=== PATIENT | female | born 1990 | race Caucasian/White ===

== ENCOUNTER 2019-02-18 18:10 | Emergency (ER) | payer OTHER ==
[~2019-02-18] VITALS: Ht 165.1 cm; Wt 86.6 kg
[~2019-02-18 18:10] MED LIST: PANTOPRAZOLE SO40 MG PO; TUMS200 MG PO; ZOFRAN4 MG SL
== END 2019-02-18 21:08 | disposition home or self-care (01) ==
LOC: ED 18:10
DX: R10.13 Epigastric pain (principal); R10.816 Epigastric abdominal tenderness
CPT/HCPCS: 80053; 81001; 83690; 84703; 85025; 99284

== ENCOUNTER 2019-03-17 17:21 | Emergency (ER) | payer OTHER ==
[~2019-03-17] VITALS: Ht 165.1 cm; Wt 86.6 kg
--- OUTSIDE RECORDS SUMMARY | 2019-03-17 17:22 | XMS ---
PreManage Notification: NOEL GARCIA Security Planning Consultant Events No recent Security Events currently on file CRITERIA MET - [facility] - 2 Visits in 30 Days CARE PROVIDERS There are no care providers on record at this time. Odalis has no Care Guidelines for this patient. Nadia VISIT COUNT (12 MO.) 3 [facility] TOTAL 3 NOTE: Visits indicate total known visits. ED/C VISIT TRACKING (12 MO.) 03/17/2019 17:21 [facility] [place] TYPE: Emergency COMPLAINT: - SORE THROAT 02/18/2019 18:11 [facility] [place] TYPE: Emergency COMPLAINT: - ABDOMINAL PAIN DIAGNOSES: - Epigastric abdominal tenderness - Epigastric pain 12/16/2018 16:08 [facility] [place] TYPE: Emergency COMPLAINT: - ABD PAIN DIAGNOSES: - Personal history of urinary calculi - Nausea with vomiting, unspecified - Epigastric pain INPATIENT VISIT TRACKING (12 MO.) No inpatient visits to display in this time frame [id number]
[2019-03-17] MEDS ORDERED: TRAZODONE HCL50 MG PO (18:03)
== END 2019-03-17 19:02 | disposition home or self-care (01) ==
LOC: ED 17:21
DX: J03.90 Acute tonsillitis, unspecified (principal); Z79.899 Other long term (current) drug therapy
CPT/HCPCS: 87880; 99283

== ENCOUNTER 2019-04-06 12:42 | Emergency (ER) | payer OTHER ==
[~2019-04-06] VITALS: Ht 165.1 cm; Wt 88.5 kg
[~2019-04-06 12:42] MED LIST changes: +TRAZODONE HCL50 MG PO
--- OUTSIDE RECORDS SUMMARY | 2019-04-06 12:44 | XMS ---
PreManage Notification: NOEL GARCIA Security Vocational Nurse Events No recent Security Events currently on file CRITERIA MET - [facility] - Has Care Guidelines - [facility] - 2 Visits in 30 Days CARE PROVIDERS LUCHO TSE Nurse Practitioner: Women's Health 03/18/2019-Current PHONE: [phone] HEMALATHA SIERRA Physician Microarray Analyst 03/18/2019-Current PHONE: [phone] Odalis has no Care Guidelines for this patient. Care History Medical/Surgical 03/18/2019 [facility] CASE MANAGEMENT REFERRAL MADE- PATIENT HAS E[facility]O AND NO PCP. E.D. VISIT COUNT (12 MO.) 4 [facility] Allison TOTAL 4 NOTE: Visits indicate total known visits. ED/UCC VISIT TRACKING (12 MO.) 04/06/2019 12:42 [facility] [place] TYPE: Emergency COMPLAINT: - POSSIBLE BUG BITE 03/17/2019 17:21 [facility] [place] TYPE: Emergency COMPLAINT: - SORE THROAT DIAGNOSES: - Acute tonsillitis, unspecified - Acute pharyngitis, unspecified - Other moth exterminator (current) drug therapy 02/18/2019 18:11 [facility] [place] TYPE: Emergency COMPLAINT: - ABDOMINAL PAIN DIAGNOSES: - Epigastric abdominal tenderness - Epigastric pain 12/16/2018 16:08 [facility] [place] TYPE: Emergency COMPLAINT: - ABD PAIN DIAGNOSES: - Personal history of urinary calculi - Nausea with vomiting, unspecified - Epigastric pain INPATIENT VISIT TRACKING (12 MO.) No inpatient visits to display in this time frame [id number]
[2019-04-06] MEDS ORDERED: PANTOPRAZOLE SO40 MG PO (12:54)
== END 2019-04-06 13:02 | disposition home or self-care (01) ==
LOC: ED 12:42
DX: L98.9 Disorder of the skin and subcutaneous tissue, unspecified (principal)

== ENCOUNTER 2020-01-15 16:10 | Emergency (ER) | payer OTHER ==
[~2020-01-15] VITALS: Ht 165.1 cm; Wt 86.2 kg
--- OUTSIDE RECORDS SUMMARY | 2020-01-15 16:12 | XMS ---
PreManage Notification: NOEL GARCIA Security Tunneling Machine Operator Events No recent Security Events currently on file CRITERIA MET - [facility] - Has Care Guidelines CARE PROVIDERS LUCHO TSE Nurse Practitioner: Women's Health 03/18/2019-Current PHONE: [phone] HEMALATHA SIERRA Physician Circuit Walker 03/18/2019-Current PHONE: [phone] Odalis has no Care Guidelines for this patient. Care History Medical/Surgical 03/18/2019 [facility] CASE MANAGEMENT REFERRAL MADE- PATIENT HAS EOCCO AND NO PCP. E.D. VISIT COUNT (12 MO.) 4 [facility] TOTAL 4 NOTE: Visits indicate total known visits. ED/UCC VISIT TRACKING (12 MO.) 01/15/2020 16:11 [facility] [place] TYPE: Emergency COMPLAINT: - RIGHT FOOT INJURY 04/06/2019 12:42 [facility] [place] TYPE: Emergency COMPLAINT: - POSSIBLE BUG BITE/MSE'D TO CLINIC DIAGNOSES: - Disorder of the skin and subcutaneous tissue, unspecified 03/17/2019 17:21 [facility] [place] TYPE: Emergency COMPLAINT: - SORE THROAT DIAGNOSES: - Acute tonsillitis, unspecified - Acute pharyngitis, unspecified - Other correction (current) drug therapy 02/18/2019 18:11 [facility] [place] TYPE: Emergency COMPLAINT: - ABDOMINAL PAIN DIAGNOSES: - Epigastric abdominal tenderness - Epigastric pain INPATIENT VISIT TRACKING (12 MO.) No inpatient visits to display in this time frame [id number]
[2020-01-15] MEDS ORDERED: TRAZODONE HCL100 MG PO (16:44)
[2020-01-15] MEDS ORDERED: NORCO 5-325 TA1 EACH PO (17:34)
== END 2020-01-15 17:59 | disposition home or self-care (01) ==
LOC: ED 16:10
DX: S96.911A Strain of unspecified muscle and tendon at ankle and foot level, right foot, initial encounter (principal); X58.XXXA Exposure to other specified factors, initial encounter
CPT/HCPCS: 73630; 99283-25

== ENCOUNTER 2020-09-21 14:37 | Emergency (ER) | payer OTHER ==
[~2020-09-21] VITALS: Ht 160 cm; Wt 95.2 kg
[~2020-09-21 14:37] MED LIST changes: +NORCO 5-325 TA1 EACH PO; +TRAZODONE HCL100 MG PO
== END 2020-09-21 16:18 | disposition home or self-care (01) ==
LOC: ED 14:37
DX: J02.9 Acute pharyngitis, unspecified (principal); Z20.822 Contact with and (suspected) exposure to COVID-19; Z79.899 Other long term (current) drug therapy
CPT/HCPCS: 87081; 87880; 99283; C9803; U0003

== ENCOUNTER 2021-01-26 11:53 | Emergency (ER) | payer OTHER ==
[~2021-01-26] VITALS: Ht 160 cm; Wt 95.2 kg
--- OUTSIDE RECORDS SUMMARY | 2021-01-26 11:56 | XMS ---
PreManage Notification: NOEL GARCIA Security Legal Collector Events No recent Security Events currently on file CRITERIA MET - [facility] - 2 Visits in 30 Days CARE PROVIDERS LUCHO TSE Nurse Practitioner: Women's Health 03/18/2019-Current PHONE: [phone] HEMALATHA SIERRA Physician Claim Technician 03/18/2019-Current PHONE: [phone] Odalis has no Care Guidelines for this patient. Care History Medical/Surgical 03/18/2019 [facility] CASE MANAGEMENT REFERRAL MADE- PATIENT HAS EOCCO AND NO PCP. E.D. VISIT COUNT (12 MO.) 4 [facility] NOTE: Visits indicate total known visits. ED/UCC VISIT TRACKING (12 MO.) 01/26/2021 11:[address] [facility] [place] Tanya Melo [place] TYPE: Emergency COMPLAINT: - ABDOMINAL PAIN 01/23/2021 12:11 [facility] [place] TYPE: Emergency DIAGNOSES: - COVID TEST - COVID-19 01/15/2021 19:36 [facility] [place] TYPE: Emergency DIAGNOSES: - COVID SCREENING - COVID-19 01/12/2021 13:[address] [facility] [place] TYPE: Emergency COMPLAINT: - SPIDER BITE [facility]2020 [facility] COMPLAINT: - SORE THROAT DIAGNOSES: - Other assistant terminal manager (current) drug therapy - Acute pharyngitis, unspecified 04/08/2020 22:07 [facility] [place] TYPE: Emergency DIAGNOSES: - ABD PAIN - Upper abdominal pain, unspecified 03/23/2020 19:17 [facility] [place] TYPE: Emergency DIAGNOSES: - POSS STREP SORE THROAT - Acute upper respiratory infection, unspecified INPATIENT VISIT TRACKING (12 MO.) No inpatient visits to display in this time frame [id number]
== END 2021-01-26 14:00 | disposition home or self-care (01) ==
LOC: ED 11:53
DX: R11.2 Nausea with vomiting, unspecified (principal); R10.84 Generalized abdominal pain; Z87.891 Personal history of nicotine dependence; Z79.899 Other long term (current) drug therapy; F12.90 Cannabis use, unspecified, uncomplicated; Z86.16 Personal history of COVID-19
CPT/HCPCS: 80053; 81001; 84703; 85025; 96374; 96375; 99284-25; J1200; J1790; J7030

== ENCOUNTER 2021-08-13 16:03 | Emergency (ER) | payer OTHER ==
[~2021-08-13] VITALS: Ht 160 cm; Wt 86.2 kg
--- OUTSIDE RECORDS SUMMARY | 2021-08-13 16:10 | XMS ---
PreManage Notification: NOEL GARCIA Security Water Resource Project Manager Events 1 event(s) in the past 18 months Most recent security events: Elopement at [facility] 01/12/2021 13:01 - Other Details: PATIENT LWBS CRITERIA MET - ED - Positive COVID-19 Lab Result - [facility] CARE PROVIDERS LUCHO TSE Nurse Practitioner: Women's Health 03/18/2019-Current PHONE: [phone] HEMALATHA SIERRA Physician Outside Cutter Hand 03/18/2019-Current PHONE: [phone] Odalis has no Care Guidelines for this patient. Care History Medical/Surgical 03/18/2019 [facility] CASE MANAGEMENT REFERRAL MADE- PATIENT HAS EOCCO AND NO PCP. E.D. VISIT COUNT (12 MO.) 2 [facility] 4 [facility]ribe[facility] TOTAL 6 NOTE: Visits indicate total known visits. ED/UCC VISIT TRACKING (12 MO.) 08/13/2021 16:04 [facility] [place] TYPE: Emergency COMPLAINT: - FEVER,VOMITING,SORE THROAT 01/26/2021 11:54 [facility] [place] TYPE: Emergency COMPLAINT: - ABDOMINAL PAIN, [place] DIAGNOSES: - Other usp (current) drug therapy - Nausea with vomiting, unspecified - Generalized abdominal pain - Personal history of nicotine dependence - Cannabis use, unspecified, uncomplicated 01/23/2021 12:11 [facility] [place] TYPE: Emergency DIAGNOSES: - COVID TEST - COVID-19 01/15/2021 19:36 [facility] [place] TYPE: Emergency DIAGNOSES: - COVID SCREENING - COVID-19 01/12/2021 13:01 [facility] [place] TYPE: Emergency COMPLAINT: - SPIDER BITE 09/21/2020 14:37 [facility] [place] TYPE: Emergency COMPLAINT: - SORE THROAT DIAGNOSES: - Other usp (current) drug therapy - Acute pharyngitis, unspecified INPATIENT VISIT TRACKING (12 MO.) No inpatient visits to display in this time frame [id number]
[2021-08-13] MEDS ORDERED: AMOXICILLIN500 MG PO (19:25)
[2021-08-13] MEDS ORDERED: medrol dose pack (19:25)
== END 2021-08-13 19:52 | disposition home or self-care (01) ==
LOC: ED 16:03
DX: J02.0 Streptococcal pharyngitis (principal); Z87.891 Personal history of nicotine dependence; Z79.899 Other long term (current) drug therapy; Z20.822 Contact with and (suspected) exposure to COVID-19
CPT/HCPCS: 87880; 99284; A9270; C9803; U0003

== ENCOUNTER 2021-10-20 18:06 | Emergency (ER) | payer OTHER ==
[~2021-10-20] VITALS: Ht 160 cm; Wt 86.2 kg
[~2021-10-20 18:06] MED LIST changes: +AMOXICILLIN500 MG PO; +medrol dose pack
== END 2021-10-20 20:21 | disposition home or self-care (01) ==
LOC: ED 18:06
DX: J02.9 Acute pharyngitis, unspecified (principal); Z87.891 Personal history of nicotine dependence; Z79.899 Other long term (current) drug therapy
CPT/HCPCS: 87880; 96372; 99283; J0561

== ENCOUNTER 2022-08-06 14:42 | Emergency (ER) | payer OTHER ==
[~2022-08-06] VITALS: Ht 160 cm; Wt 86.6 kg
[2022-08-06] MEDS ORDERED: AMOX TR-K CLV1 EAC1 PO (14:53)
[2022-08-06] MEDS ORDERED: PREDNISONE20 MG PO (14:53)
== END 2022-08-06 15:02 | disposition home or self-care (01) ==
LOC: ED 14:42
DX: J03.80 Acute tonsillitis due to other specified organisms (principal); Z87.891 Personal history of nicotine dependence; Z79.899 Other long term (current) drug therapy
CPT/HCPCS: 99282

== ENCOUNTER 2022-10-01 17:34 | Emergency (ER) | payer OTHER ==
[~2022-10-01] VITALS: Ht 160 cm; Wt 83.9 kg
[~2022-10-01 17:34] MED LIST changes: +AMOX TR-K CLV1 EAC1 PO; +PREDNISONE20 MG PO
[2022-10-01] MEDS ORDERED: AMOXICILLIN500 MG PO (18:14)
[2022-10-01 18:44] VITALS: BP 162/68
== END 2022-10-01 18:44 | disposition home or self-care (01) ==
LOC: ED 17:34
DX: J02.9 Acute pharyngitis, unspecified (principal); Z87.891 Personal history of nicotine dependence; Z79.899 Other long term (current) drug therapy
CPT/HCPCS: 87880

== ENCOUNTER 2023-01-24 17:45 | Emergency (ER) | payer OTHER ==
[~2023-01-24] VITALS: Ht 160 cm; Wt 78.9 kg
--- OUTSIDE RECORDS SUMMARY | ~2023-01-24 | XMS | Continuity of Care Document ---
Demographics + + + | Address | [address] | | | [place] [address] | + + + | Preferred Language | Unknown | + + + | Marital Status | Never | + + + | Orthodox Affiliation | Unknown | + + + | Race | White | + + + | Ethnic Group | Not or | + + + Author + + + | Author | [facility] | + + + | Organization | [facility] | + + + | Address | [address] | | | [place] [address] | + + + | Phone | | + + + Care Team Providers + + + + | Care Driver/Guide Name | Role | Phone | + + + + Unavailable | Unavailable | + + + + Unavailable | Unavailable | + + + + Unavailable | Unavailable | + + + + Unavailable | Unavailable | + + + + Allergies No information. Encounters No information. Functional Status No information. Immunizations No information. Medications + + + + | date | description | facility | + + + + | 2018-12-16 00:00 | [facility]CL | [facility] | + + + + | 2018-12-16 00:00 | [facility] | [facility] | + + + + | 2022-11-28 00:00 | metroNIDAZOLE 500 MG Oral | [facility] | | | Tablet | | + + + + | 2020-09-07 00:00 | metronidazole 0.0075 MG/MG | [facility] | | | Vaginal Gel | | + + + + | 2021-11-17 00:00 | metronidazole 0.0075 MG/MG | [facility] | | | Vaginal Gel | | + + + + | 2022-10-31 00:00 | metronidazole 0.0075 MG/MG | [facility] | | | Vaginal Gel | | + + + + | 2022-11-23 00:00 | metronidazole 0.0075 MG/MG | [facility] | | | Vaginal Gel | | + + + + | 2021-10-11 00:00 | nitrofurantoin, | [facility] | | | macrocrystals 25 MG / | | | | nitrofurantoin, monohydrate | | | | 75 MG Oral Capsule | | + + + + | 2022-11-28 00:00 | fluconazole 150 MG Oral | [facility] | | | Tablet | | + + + + | 2021-10-13 00:00 | sulfamethoxazole 800 MG / | [facility] | | | trimethoprim 160 MG Oral | | | | Tablet | | + + + + | 2022-10-31 00:00 | ciprofloxacin 500 MG Oral | [facility] | | | Tablet [Cipro] | | + + + + | 2021-09-15 00:00 | fluconazole 150 MG Oral | [facility] | | | Tablet [Diflucan] | | + + + + | 2022-08-06 00:00 | CALCIUM CARBONATE | [facility] | + + + + | 2022-10-01 00:00 | CALCIUM CARBONATE | [facility] | + + + + | 2020-08-24 00:00 | traZODone HCl 100 MG Oral | [facility] | | | Tablet | | + + + + | 2021-09-01 00:00 | traZODone HCl 100 MG Oral | [facility] | | | Tablet | | + + + + | 2022-08-22 00:00 | traZODone HCl 100 MG Oral | [facility] | | | Tablet | | + + + + | 2020-09-07 00:00 | metroNIDAZOLE 0.75% | [facility] | | | Vaginal Gel | | + + + + | 2021-11-17 00:00 | metroNIDAZOLE 0.75% | [facility] | | | Vaginal Gel | | + + + + | 2022-10-31 00:00 | metroNIDAZOLE 0.75% | [facility] | | | Vaginal Gel | | + + + + | 2022-11-23 00:00 | metroNIDAZOLE 0.75% | [facility] | | | Vaginal Gel | | + + + + | 2021-10-11 00:00 | Nitrofurantoin Monohyd | [facility] | | | Macro 100 MG Oral Capsule | | + + + + | 2022-10-01 00:00 | AMOXICILLIN | [facility] | + + + + | 2022-11-28 00:00 | metronidazole 500 MG Oral | [facility] | | | Tablet | | + + + + | 2022-08-06 00:00 | predniSONE | [facility] | + + + + | 2021-10-11 00:00 | terbinafine 250 MG Oral | [facility] | | | Tablet | | + + + + | 2018-12-16 00:00 | PANTOPRAZOLE SODIUM | [facility] | + + + + | 2018-12-16 00:00 | PANTOPRAZOLE SODIUM | [facility] | + + + + | 2022-08-06 00:00 | PANTOPRAZOLE SODIUM | [facility] | + + + + | 2022-10-01 00:00 | PANTOPRAZOLE SODIUM | [facility] | + + + + | 2021-10-13 00:00 | | [facility] | | | Sulfamethoxazole-Trimethopr | | | | im 800-160 MG Oral Tablet | | + + + + | 2021-10-11 00:00 | Terbinafine HCl 250 MG | [facility] | | | Oral Tablet | | + + + + | 2021-09-15 00:00 | Diflucan 150 MG Oral | [facility] | | | Tablet | | + + + + | 2022-11-28 00:00 | Fluconazole 150 MG Oral | [facility] | | | Tablet | | + + + + | 2022-10-31 00:00 | Cipro 500 MG Oral Tablet | [facility] | | | | | + + + + | 2022-08-06 00:00 | AMOXICILLIN/POTASSIUM CLAV | [facility] | | | | | + + + + | 2022-08-06 00:00 | TRAZODONE HCL | [facility] | + + + + | 2022-10-01 00:00 | TRAZODONE HCL | [facility] | + + + + | 2020-08-24 00:00 | trazodone hydrochloride | [facility] | | | 100 MG Oral Tablet | | + + + + | 2021-09-01 00:00 | trazodone hydrochloride | [facility] | | | 100 MG Oral Tablet | | + + + + | 2022-08-22 00:00 | trazodone hydrochloride | [facility] | | | 100 MG Oral Tablet | | + + + + | 2022-08-06 00:00 | TRAZODONE HCL | [facility] | + + + + | 2022-10-01 00:00 | TRAZODONE HCL | [facility] | + + + + | 2020-01-15 00:00 | HYDROCODONE | [facility] | | | BIT/ACETAMINOPHEN | | + + + + | 2020-01-15 00:00 | HYDROCODONE | [facility] | | | BIT/ACETAMINOPHEN | | + + + + Problems + + + + | date | description | facility | + + + + | 2018-12-16 00:00 | Abdominal pain | [facility] | + + + + | 2018-12-16 00:00 | Abdominal pain | [facility] | + + + + | 2019-03-17 00:00 | Tonsillitis | [facility] | + + + + | 2019-03-17 00:00 | Tonsillitis | [facility] | + + + + | 2019-04-06 00:00 | Encounter for medical | [facility] | | | screening examination | | + + + + | 2019-04-06 00:00 | Encounter for medical | [facility] | | | screening examination | | + + + + | 2020-09-21 00:00 | Viral pharyngitis | [facility] | + + + + | 2020-09-21 00:00 | Viral pharyngitis | [facility] | + + + + | 2021-01-12 00:00 | Patient left without being | [facility] | | | seen | | + + + + | 2021-01-12 00:00 | Patient left without being | [facility] | | | seen | | + + + + | 2021-01-26 00:00 | Cannabinoid hyperemesis | [facility] | | | syndrome | | + + + + | 2021-01-26 00:00 | Cannabinoid hyperemesis | [facility] | | | syndrome | | + + + + | 2021-08-13 00:00 | Pharyngitis due to | [facility] | | | Streptococcus species | | + + + + | 2021-08-13 00:00 | Pharyngitis due to | [facility] | | | Streptococcus species | | + + + + | 2021-10-20 00:00 | Exudative pharyngitis | [facility] | + + + + | 2021-10-20 00:00 | Exudative pharyngitis | [facility] | + + + + | 2022-08-06 00:00 | Acute bacterial | [facility] | | | tonsillitis | | + + + + | 2022-08-06 00:00 | Acute bacterial | [facility] | | | tonsillitis | | + + + + | 2022-10-01 00:00 | Pharyngitis | [facility] | + + + + | 2022-10-01 17:36 | ACUTE PHARYNGITIS, | [facility] | | | UNSPECIFIED | | + + + + | 2022-10-01 17:36 | 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 | | | Pressure; Most recent | | | | Systolic <130mm Hg | | + + + + | 2022-11-23 00:00 | Controlling BP; Most | [facility] | | | recent Diastolic BP < 80mm | | | | Hg | | + + + + | 2021-09-15 00:00 | Annual Depression | [facility] | | | Screening; 15 Minutes | | + + + + Results/Labs +--------+--------+ +---------+--------+---------+ | test | date | facility | value | unit | notes | +--------+--------+ +---------+--------+---------+ + + | Result panel 1 | + + + + + + + + + | No Results | (no date) | [facility] | No Results | (missing) | (missing) | | | | [facility] | | | | | | [facility] | | | | + + + + + + + + + | Result panel 2 | + + + + + + + + + | No Results | (no date) | [facility] | No Results | (missing) | (missing) | | | | [facility] | | | | | | | [facility] | | | | + + + + + + + + + | Result panel 3 | + + + + + + + + + | | 2022-10-01 | [facility] | NEGATIVE | (missing) | (missing) | | (unavailable | 17:48:07 [facility] | | | | + + + + + + + + + | URINALYSIS w/C+S IF INDICATED | + + + + + + + + + | COLLECTION | 2020-09-07 | [facility] | CLEAN CATCH | (missing) | (missing) | | TYPE | 00:00 | MEDICAL | | | | | | | [facility] | | | | + + + + + + + | CLARITY | 2020-09-07 | [facility] | | (missing) | (missing) | | | 00:00 | MEDICAL | SLIGHTLYCLOU | | | | | | [facility] | DY | | | + + + + + + + | GLUCOSE | 2020-09-07 | [facility] | NORMAL | (missing) | (missing) | | | 00:00 | MEDICAL | | | | | | | [facility] | | | | + + + + + + + | RBC'S | 2020-09-07 | [facility] | 2 | /hpf | (missing) | | | 00:00 | MEDICAL | | | | | | | [facility] | | | | + + + + + + + | KETONE | 2020-09-07 | [facility] | NEGATIVE | (missing) | (missing) | | | 00:00 | MEDICAL | | | | | | | [facility] | | | | + + + + + + + | PROTEIN | 2020-09-07 | [facility] | NEGATIVE | (missing) | (missing) | | | 00:00 | MEDICAL | mg/dL | | | | | | [facility] | | | | + + + + + + + | BACTERIA | 2020-09-07 | [facility] | NEGATIVE | (missing) | (missing) | | | 00:00 | MEDICAL | /hpf | | | | | | [facility] | | | | + + + + + + + | BILIRUBIN | 2020-09-07 | [facility] | NEGATIVE | (missing) | (missing) | | | 00:00 | MEDICAL | | | | | | | [facility] | | | | + + + + + + + | COLOR | 2020-09-07 | [facility] | YELLOW | (missing) | (missing) | | | 00:00 | MEDICAL | | | | | | | [facility] | | | | + + + + + + + | CRYSTALS | 2020-09-07 | [facility] | NEGATIVE | (missing) | (missing) | | | 00:00 | MEDICAL | /hpf | | | | | | [facility] | | | | + + + + + + + | EPITHELIAL | 2020-09-07 | [facility] | SQUAMOUS 3+ | (missing) | (missing) | | | 00:00 | MEDICAL | /lpf | | | | | | [facility] | | | | + + + + + + + | BLOOD/HGB | 2020-09-07 | [facility] | NEGATIVE | (missing) | (missing) | | | 00:00 | MEDICAL | | | | | | | [facility] | | | | + + + + + + + | LEUK | 2020-09-07 | [facility] | NEGATIVE | (missing) | (missing) | | ESTERASE | 00:00 | MEDICAL | | | | | | | [facility] | | | | + + + + + + + | NITRITE | 2020-09-07 | [facility] | NEGATIVE | (missing) | (missing) | | | 00:00 | MEDICAL | | | | | | | [facility] | | | | + + + + + + + | PH | 2020-09-07 | [facility] | 6 | (missing) | (missing) | | | 00:00 | MEDICAL | | | | | | | [facility] | | | | + + + + + + + | SPECIFIC | 2020-09-07 | [facility] | 1.021 | (missing) | (missing) | | GRAVITY | 00:00 | MEDICAL | | | | | | | [facility] | | | | + + + + + + + | | 2020-09-07 | [facility] | NORMAL | (missing) | (missing) | | UROBILINOGEN | 00:00 | MEDICAL | mg/dL | | | | | | [facility] | | | | + + + + + + + | WBC'S | 2020-09-07 | [facility] | 2 | /hpf | (missing) | | | 00:00 | MEDICAL | | | | | | | [facility] | | | | + + + + + + + | CASTS | 2020-09-07 | [facility] | NEGATIVE | (missing) | (missing) | | | 00:00 | MEDICAL | /lpf | | | | | | [facility] | | | | + + + + + + + + + | URINALYSIS w/C+S IF INDICATED | + + + + + + + + + | COLLECTION | 2021-10-11 | [facility] | CLEAN CATCH | (missing) | (missing) | | TYPE | 15:52 | MEDICAL | | | | | | | [facility] | | | | + + + + + + + | CLARITY | 2021-10-11 | [facility] | CLEAR | (missing) | (missing) | | | 15:52 | MEDICAL | | | | | | | [facility] | | | | + + + + + + + | GLUCOSE | 2021-10-11 | [facility] | NORMAL | (missing) | (missing) | | | 15:52 | MEDICAL | | | | | | | [facility] | | | | + + + + + + + | RBC'S | 2021-10-11 | [facility] | 2 | /hpf | (missing) | | | 15:52 | MEDICAL | | | | | | | [facility] | | | | + + + + + + + | KETONE | 2021-10-11 | [facility] | NEGATIVE | (missing) | (missing) | | | 15:52 | MEDICAL | | | | | | | [facility] | | | | + + + + + + + | PROTEIN | 2021-10-11 | [facility] | NEGATIVE | (missing) | (missing) | | | 15:52 | MEDICAL | mg/dL | | | | | | [facility] | | | | + + + + + + + | BACTERIA | 2021-10-11 | [facility] | NEGATIVE | (missing) | (missing) | | | 15:52 | MEDICAL | /hpf | | | | | | [facility] | | | | + + + + + + + | BILIRUBIN | 2021-10-11 | [facility] | NEGATIVE | (missing) | (missing) | | | 15:52 | MEDICAL | | | | | | | [facility] | | | | + + + + + + + | COLOR | 2021-10-11 | [facility] | YELLOW | (missing) | (missing) | | | 15:52 | MEDICAL | | | | | | | [facility] | | | | + + + + + + + | CRYSTALS | 2021-10-11 | [facility] | NEGATIVE | (missing) | (missing) | | | 15:52 | MEDICAL | /hpf | | | | | | [facility] | | | | + + + + + + + | EPITHELIAL | 2021-10-11 | [facility] | SQUAMOUS 1+ | (missing) | (missing) | | | 15:52 | MEDICAL | /lpf | | | | | | [facility] | | | | + + + + + + + | BLOOD/HGB | 2021-10-11 | [facility] | NEGATIVE | (missing) | (missing) | | | 15:52 | MEDICAL | | | | | | | [facility] | | | | + + + + + + + | LEUK | 2021-10-11 | [facility] | NEGATIVE | (missing) | (missing) | | ESTERASE | 15:52 | MEDICAL | | | | | | | [facility] | | | | + + + + + + + | NITRITE | 2021-10-11 | [facility] | NEGATIVE | (missing) | (missing) | | | 15:52 | MEDICAL | | | | | | | [facility] | | | | + + + + + + + | PH | 2021-10-11 | [facility] | 7 | (missing) | (missing) | | | 15:52 | MEDICAL | | | | | | | [facility] | | | | + + + + + + + | SPECIFIC | 2021-10-11 | [facility] | 1.025 | (missing) | (missing) | | GRAVITY | 15:52 | MEDICAL | | | | | | | [facility] | | | | + + + + + + + | | 2021-10-11 | [facility] | NORMAL | (missing) | (missing) | | UROBILINOGEN | 15:52 | MEDICAL | mg/dL | | | | | | [facility] | | | | + + + + + + + | WBC'S | 2021-10-11 | [facility] | 5 | /hpf | (missing) | | | 15:52 | MEDICAL | | | | | | | [facility] | | | | + + + + + + + | CASTS | 2021-10-11 | [facility] | NEGATIVE | (missing) | (missing) | | | 15:52 | MEDICAL | /lpf | | | | | | [facility] | | | | + + + + + + + + + | URINALYSIS w/C+S IF INDICATED | + + + + + + + + + | COLLECTION | 2022-10-31 | [facility] | CLEAN CATCH | (missing) | (missing) | | TYPE | 16:51 | MEDICAL | | | | | | | [facility] | | | | + + + + + + + | CLARITY | 2022-10-31 | [facility] | CLEAR | (missing) | (missing) | | | 16:51 | MEDICAL | | | | | | | [facility] | | | | + + + + + + + | GLUCOSE | 2022-10-31 | [facility] | NORMAL | (missing) | (missing) | | | 16:51 | MEDICAL | | | | | | | , P[facility] | | | | + + + + + + + | RBC'S | 2022-10-31 | [facility] | 0 | /hpf | (missing) | | | 16:51 | MEDICAL | | | | | | | [facility] | | | | + + + + + + + | KETONE | 2022-10-31 | [facility] | NEGATIVE | (missing) | (missing) | | | 16:51 | MEDICAL | | | | | | | [facility] | | | | + + + + + + + | PROTEIN | 2022-10-31 | [facility] | NEGATIVE | (missing) | (missing) | | | 16:51 | MEDICAL | mg/dL | | | | | | [facility] | | | | + + + + + + + | BACTERIA | 2022-10-31 | [facility] | NEGATIVE | (missing) | (missing) | | | 16:51 | MEDICAL | /hpf | | | | | | [facility] | | | | + + + + + + + | BILIRUBIN | 2022-10-31 | [facility] | NEGATIVE | (missing) | (missing) | | | 16:51 | MEDICAL | | | | | | | [facility] | | | | + + + + + + + | COLOR | 2022-10-31 | [facility] | YELLOW | (missing) | (missing) | | | 16:51 | MEDICAL | | | | | | | [facility] | | | | + + + + + + + | CRYSTALS | 2022-10-31 | [facility] | NEGATIVE | (missing) | (missing) | | | 16:51 | MEDICAL | /hpf | | | | | | [facility] | | | | + + + + + + + | EPITHELIAL | 2022-10-31 | [facility] | SEE COMMENT | (missing) | (missing) | | | 16:51 | MEDICAL | /lpf | | | | | | [facility] | | | | + + + + + + + | BLOOD/HGB | 2022-10-31 | [facility] | NEGATIVE | (missing) | (missing) | | | 16:51 | MEDICAL | | | | | | | [facility] | | | | + + + + + + + | LEUK | 2022-10-31 | [facility] | NEGATIVE | (missing) | (missing) | | ESTERASE | 16:51 | MEDICAL | | | | | | | , P[facility] | | | | + + + + + + + | NITRITE | 2022-10-31 | [facility] | NEGATIVE | (missing) | (missing) | | | 16:51 | MEDICAL | | | | | | | , [facility] | | | | + + + + + + + | PH | 2022-10-31 | [facility] | 7 | (missing) | (missing) | | | 16:51 | MEDICAL | | | | | | | , [facility] | | | | + + + + + + + | SPECIFIC | 2022-10-31 | [facility] | 1.015 | (missing) | (missing) | | GRAVITY | 16:51 | MEDICAL | | | | | | | [facility] | | | | + + + + + + + | | 2022-10-31 | [facility] | NORMAL | (missing) | (missing) | | UROBILINOGEN | 16:51 | MEDICAL | mg/dL | | | | | | [facility] | | | | + + + + + + + | WBC'S | 2022-10-31 | [facility] | 0 | /hpf | (missing) | | | 16:51 | MEDICAL | | | | | | | [facility] | | | | + + + + + + + | CASTS | 2022-10-31 | [facility] | NEGATIVE | (missing) | (missing) | | | 16:51 | MEDICAL | /lpf | | | | | | [facility] | | | | + + + + + + + + + | TRUSWAB VAGINITIS PANEL PLUS | + + + + + + + + + | TOSHIA | 2021-11-15 | [facility] | None | (missing) | (missing) | | GLABRATA | 00:00 | MEDICAL | Detected | | | | | | [facility] | | | | + + + + + + + | TOSHIA | 2021-11-15 | [facility] | None | (missing) | (missing) | | SPECIES | 00:00 | MEDICAL | Detected | | | | | | [facility] | | | | + + + + + + + | CHLAMYDIA | 2021-11-15 | [facility] | None | (missing) | (missing) | | | 00:00 | MEDICAL | Detected | | | | | | [facility] | | | | + + + + + + + | GARDNERELLA | 2021-11-15 | [facility] | Positive | (missing) | (missing) | | | 00:00 | MEDICAL | | | | | | | [facility] | | | | + + + + + + + | N. | 2021-11-15 | [facility] | None | (missing) | (missing) | | GONORRHEA | 00:00 | MEDICAL | Detected | | | | | | [facility] | | | | + + + + + + + | TESTING | 2021-11-15 | [facility] | See Note | (missing) | (missing) | | COMMENT | 00:00 | MEDICAL | | | | | | | [facility] | | | | + + + + + + + | TRICHOMONAS | 2021-11-15 | [facility] | Positive | (missing) | (missing) | | | 00:00 | MEDICAL | | | | | | | [facility] | | | | + + + + + + + + + | TRUSWAB VAGINITIS PANEL PLUS | + + + + + + + + + | BACT. | 2022-11-23 | [facility] | Positive | (missing) | (missing) | | VAGINOSIS | 00:00 | MEDICAL | | | | | | | [facility] | | | | + + + + + + + | TOSHIA | 2022-11-23 | [facility] | None | (missing) | (missing) | | GLABRATA | 00:00 | MEDICAL | Detected | | | | | | [facility] | | | | + + + + + + + | TOSHIA | 2022-11-23 | [facility] | Positive | (missing) | (missing) | | SPECIES | 00:00 | MEDICAL | | | | | | | [facility] | | | | + + + + + + + | CHLAMYDIA | 2022-11-23 | [facility] | None | (missing) | (missing) | | | 00:00 | MEDICAL | Detected | | | | | | [facility] | | | | + + + + + + + | N. | 2022-11-23 | [facility] | None | (missing) | (missing) | | GONORRHEA | 00:00 | MEDICAL | Detected | | | | | | [facility] | | | | + + + + + + + | TESTING | 2022-11-23 | [facility] | See Note | (missing) | (missing) | | COMMENT | 00:00 | MEDICAL | | | | | | | [facility] | | | | + + + + + + + | TRICHOMONAS | 2022-11-23 | [facility] | None | (missing) | (missing) | | | 00:00 | MEDICAL | Detected | | | | | | [facility] | | | | + + + + + + + Social History + + + + | date | description | facility | + + + + | 2020-08-25 00:00 | Unknown if ever smoked | [facility] | | | | | + + + + | 2020-08-25 00:00 | Smoker (finding) | [facility] | | | | | + + + + | 2020-09-08 00:00 | Unknown if ever smoked | [facility] | | | | | + + + + | 2020-09-08 00:00 | Smoker (finding) | [facility] | | | | | + + + + | 2021-09-16 00:00 | Unknown if ever smoked | [facility] | | | | | + + + + | 2021-09-16 00:00 | Smoker (finding) | [facility] | | | | | + + + + | 2021-10-13 00:00 | [facility] if ever smoked | [facility] | | | | | + + + + | 2021-10-13 00:00 | Smoker (finding) | [facility] | | | | | + + + + | 2021-11-16 00:00 | Unknown if ever smoked | [facility] | | | | | + + + + | 2021-11-16 00:00 | Smoker (finding) | [facility] | | | | | + + + + | 2021-11-17 00:00 | Unknown if ever smoked | [facility] | | | | | + + + + | 2021-11-17 00:00 | Smoker (finding) | [facility] | | | | | + + + + | 2022-11-01 00:00 | Unknown if ever smoked | [facility] | | | | | + + + + | 2022-11-01 00:00 | Smoker (finding) | [facility]le OJED[facility]. | | | | | + + + + | 2022-12-05 00:00 | Unknown if ever smoked | [facility]le [facility]JED[facility]. | | | | | + + + + | 2022-12-05 00:00 | Smoker (finding) | [facility]le [facility]. | | | | | + + + + Vital Signs + + + + + | date | measurement | value | units | + + + + + | 2020-08-24 00:00 | BMI | 36.7 | kg/m2 | + + + + + | 2020-08-24 00:00 | BP_diastolic | 80 | mmHg | + + + + + | 2020-08-24 00:00 | BP_systolic | 116 | mmHg | + + + + + | 2020-08-24 00:00 | BSA | 1.99 | m2 | + + + + + | 2020-08-24 00:00 | heart_rate | 1|1| | completed | + + + + + | 2020-08-24 00:00 | heart_rate | 60 | /min | + + + + + | 2020-08-24 00:00 | height_metric | 161.29 | cm | + + + + + | 2020-08-24 00:00 | height_standard | 63.5 | in | + + + + + | 2020-08-24 00:00 | temperature_metric | 36.72 | C | | | | | | + + + + + | 2020-08-24 00:00 | | 98.1 | F | | | temperature_standar | | | | | d | | | + + + + + | 2020-08-24 00:00 | weight_metric | 95.44 | kg | + + + + + | 2020-08-24 00:00 | weight_standard | 210.4 | lb | + + + + + | 2020-09-07 00:00 | BMI | 36.6 | kg/m2 | + + + + + | 2020-09-07 00:00 | BP_diastolic | 72 | mmHg | + + + + + | 2020-09-07 00:00 | BP_systolic | 112 | mmHg | + + + + + | 2020-09-07 00:00 | BSA | 1.99 | m2 | + + + + + | 2020-09-07 00:00 | heart_rate | 73 | /min | + + + + + | 2020-09-07 00:00 | height_metric | 161.29 | cm | + + + + + | 2020-09-07 00:00 | height_standard | 63.5 | in | + + + + + | 2020-09-07 00:00 | o2_saturation | 98 | % | + + + + + | 2020-09-07 00:00 | temperature_metric | 36.72 | C | | | | | | + + + + + | 2020-09-07 00:00 | | 98.1 | F | | | temperature_standar | | | | | d | | | + + + + + | 2020-09-07 00:00 | weight_metric | 95.31 | kg | + + + + + | 2020-09-07 00:00 | weight_standard | 210.13 | lb | + + + + + | 2021-09-15 00:00 | BMI | 34.6 | kg/m2 | + + + + + | 2021-09-15 00:00 | BP_diastolic | 74 | mmHg | + + + + + | 2021-09-15 00:00 | BP_systolic | 114 | mmHg | + + + + + | 2021-09-15 00:00 | BSA | 1.94 | m2 | + + + + + | 2021-09-15 00:00 | heart_rate | 1|1| | completed | + + + + + | 2021-09-15 00:00 | heart_rate | 90 | /min | + + + + + | 2021-09-15 00:00 | height_metric | 161.29 | cm | + + + + + | 2021-09-15 00:00 | height_standard | 63.5 | in | + + + + + | 2021-09-15 00:00 | o2_saturation | 99 | % | + + + + + | 2021-09-15 00:00 | temperature_metric | 36.5 | C | | | | | | + + + + + | 2021-09-15 00:00 | | 97.7 | F | | | temperature_standar | | | | | d | | | + + + + + | 2021-09-15 00:00 | weight_metric | 89.99 | kg | + + + + + | 2021-09-15 00:00 | weight_standard | 198.4 | lb | + + + + + | 2021-10-11 00:00 | BMI | 34.0 | kg/m2 | + + + + + | 2021-10-11 00:00 | BP_diastolic | 68 | mmHg | + + + + + | 2021-10-11 00:00 | BP_systolic | 118 | mmHg | + + + + + | 2021-10-11 00:00 | BSA | 1.92 | m2 | + + + + + | 2021-10-11 00:00 | heart_rate | 1|1| | completed | + + + + + | 2021-10-11 00:00 | heart_rate | 78 | /min | + + + + + | 2021-10-11 00:00 | height_metric | 161.29 | cm | + + + + + | 2021-10-11 00:00 | height_standard | 63.5 | in | + + + + + | 2021-10-11 00:00 | o2_saturation | 99 | % | + + + + + | 2021-10-11 00:00 | temperature_metric | 36.11 | C | | | | | | + + + + + | 2021-10-11 00:00 | | 97 | F | | | temperature_standar | | | | | d | | | + + + + + | 2021-10-11 00:00 | weight_metric | 88.45 | kg | + + + + + | 2021-10-11 00:00 | weight_standard | 195 | lb | + + + + + | 2021-11-15 00:00 | BMI | 34.2 | kg/m2 | + + + + + | 2021-11-15 00:00 | BSA | 1.9 | m2 | + + + + + | 2021-11-15 00:00 | BSA | 1.93 | m2 | + + + + + | 2021-11-15 00:00 | height_metric | 161.29 | cm | + + + + + | 2021-11-15 00:00 | height_standard | 63.5 | in | + + + + + | 2021-11-15 00:00 | weight_metric | 88.9 | kg | + + + + + | 2021-11-15 00:00 | weight_standard | 196 | lb | + + + + + | 2022-08-06 00:00 | BMI | 33.8 | kg/m2 | + + + + + | 2022-08-06 00:00 | BP_diastolic | 85 | mmHg | + + + + + | 2022-08-06 00:00 | BP_systolic | 120 | mmHg | + + + + + | 2022-08-06 00:00 | heart_rate | 86 | /min | + + + + + | 2022-08-06 00:00 | height_metric | 160.02 | cm | + + + + + | 2022-08-06 00:00 | height_standard | 63 | in | + + + + + | 2022-08-06 00:00 | o2_saturation | 100 | % | + + + + + | 2022-08-06 00:00 | respiration_rate | 15 | /min | + + + + + | 2022-08-06 00:00 | temperature_metric | 37.06 | C | | | | | | + + + + + | 2022-08-06 00:00 | | 98.7 | F | | | temperature_standar | | | | | d | | | + + + + + | 2022-08-06 00:00 | weight_metric | 86.6 | kg | + + + + + | 2022-08-06 00:00 | weight_standard | 190.92 | lb | + + + + + | 2022-10-01 00:00 | BMI | 32.8 | kg/m2 | + + + + + | 2022-10-01 00:00 | BP_diastolic | 68 | mmHg | + + + + + | 2022-10-01 00:00 | BP_systolic | 162 | mmHg | + + + + + | 2022-10-01 00:00 | heart_rate | 86 | /min | + + + + + | 2022-10-01 00:00 | height_metric | 160.02 | cm | + + + + + | 2022-10-01 00:00 | height_standard | 63 | in | + + + + + | 2022-10-01 00:00 | o2_saturation | 99 | % | + + + + + | 2022-10-01 00:00 | respiration_rate | 16 | /min | + + + + + | 2022-10-01 00:00 | temperature_metric | 36.67 | C | | | | | | + + + + + | 2022-10-01 00:00 | | 98 | F | | | temperature_standar | | | | | d | | | + + + + + | 2022-10-01 00:00 | weight_metric | 83.9 | kg | + + + + + | 2022-10-01 00:00 | weight_standard | 184.97 | lb | + + + + + | 2022-10-31 00:00 | BMI | 32.7 | 1 | + + + + + | 2022-10-31 00:00 | BP_diastolic | 66 | mmHg | + + + + + | 2022-10-31 00:00 | BP_systolic | 102 | mmHg | + + + + + | 2022-10-31 00:00 | BSA | 1.9 | 1 | + + + + + | 2022-10-31 00:00 | heart_rate | 1|1| | completed | + + + + + | 2022-10-31 00:00 | heart_rate | 77 | /min | + + + + + | 2022-10-31 00:00 | height_metric | 161.29 | cm | + + + + + | 2022-10-31 00:00 | height_standard | 63.5 | in | + + + + + | 2022-10-31 00:00 | o2_saturation | 97 | % | + + + + + | 2022-10-31 00:00 | temperature_metric | 36.61 | C | | | | | | + + + + + | 2022-10-31 00:00 | | 97.9 | F | | | temperature_standar | | | | | d | | | + + + + + | 2022-10-31 00:00 | weight_metric | 85.05 | kg | + + + + + | 2022-10-31 00:00 | weight_standard | 187.5 | lb | + + + + + | 2022-11-23 00:00 | BMI | 31.1 | 1 | + + + + + | 2022-11-23 00:00 | BP_diastolic | 62 | mmHg | + + + + + | 2022-11-23 00:00 | BP_systolic | 122 | mmHg | + + + + + | 2022-11-23 00:00 | BSA | 1.9 | 1 | + + + + + | 2022-11-23 00:00 | heart_rate | 1|1| | completed | + + + + + | 2022-11-23 00:00 | heart_rate | 63 | /min | + + + + + | 2022-11-23 00:00 | height_metric | 161.29 | cm | + + + + + | 2022-11-23 00:00 | height_standard | 63.5 | in | + + + + + | 2022-11-23 00:00 | o2_saturation | 99 | % | + + + + + | 2022-11-23 00:00 | temperature_metric | 36.61 | C | | | | | | + + + + + | 2022-11-23 00:00 | | 97.9 | F | | | temperature_standar | | | | | d | | | + + + + + | 2022-11-23 00:00 | weight_metric | 80.85 | kg | + + + + + | 2022-11-23 00:00 | weight_standard | 178.25 | lb | + + + + +"
--- OUTSIDE RECORDS SUMMARY | ~2023-01-24 | XMS | Continuity of Care Document ---
Demographics + + + | Address | [address] | | | [place] [address] | + + + | Preferred Language | Unknown | + + + | Marital Status | Never | + + + | Yazidi Affiliation | Unknown | + + + | Race | White | + + + | Ethnic Group | Not or | + + + Author + + + | Author | [facility] | + + + | Organization | [facility] | + + + | Address | [address] [facility] [address] [facility] | | | [place] [address] | + + + | Phone | | + + + Care Team Providers + + + + | Care Honing Machine Operator Production Name | Role | Phone | + [...] | 2018-12-16 00:00 | ONDANSETRON HCL | [facility] | + + + + | 2018-12-16 00:00 | ONDANSETRON HCL | [facility] | + + + + | [...] + | 2021-10-11 00:00 | nitrofurantoin, | [facility] | | | macrocrystals 25 MG / | | | | nitrofurantoin, monohydrate | | | | 75 MG Oral Capsule | | + + + + | 2022-11-28 00:00 | fluconazole 150 MG Oral | [facility] | | | Tablet | | + + + + | 2021-10-13 00:00 | sulfamethoxazole 800 MG / | [facility] | | | trimethoprim 160 MG Oral | | | | Tablet | | + + + + | 2022-10-31 00:00 | ciprofloxacin 500 MG Oral | [facility] | | | Tablet [Cipro] | | + + + + | 2021-09-15 00:00 | fluconazole 150 MG Oral | [facility] | | | Tablet [Diflucan] | | + + + + | 2022-08-06 00:00 | CALCIUM CARBONATE | [facility] | + + + + | 2022-10-01 00:00 | CALCIUM CARBONATE | [facility] | + + + + | [...] + | 2022-10-01 00:00 | AMOXICILLIN | [facility] | + + + + | 2022-11-28 00:00 | metronidazole 500 MG Oral | [facility] | | | Tablet | | + + + + | 2022-08-06 00:00 | predniSONE | [facility] | + + + + | 2021-10-11 00:00 | terbinafine 250 MG Oral | [facility] | | | Tablet | | + + + + | 2018-12-16 00:00 | PANTOPRAZOLE SODIUM | [facility] | + + + + | 2018-12-16 00:00 | PANTOPRAZOLE SODIUM | [facility] | + + + + | 2022-08-06 00:00 | PANTOPRAZOLE SODIUM | [facility] | + + + + | 2022-10-01 00:00 | PANTOPRAZOLE SODIUM | [facility] | + + + + | [...] 00:00 | Fluconazole 150 MG Oral | [facility] | | | Tablet | | + + + + | 2022-10-31 00:00 | Cipro 500 MG Oral Tablet | [facility] | | | | | + + + + | 2022-08-06 00:00 | AMOXICILLIN/POTASSIUM CLAV | [facility] | | | | | + + + + | 2022-08-06 00:00 | TRAZODONE HCL | [facility] | + + + + | 2022-10-01 00:00 | TRAZODONE HCL | [facility] | + + + + | 2020-08-24 00:00 | trazodone hydrochloride | [facility] | | | 100 MG Oral Tablet | | + + + + | 2021-09-01 00:00 | trazodone hydrochloride | [facility] | | | 100 MG Oral Tablet | | + + + + | 2022-08-22 00:00 | trazodone hydrochloride | [facility] | | | 100 MG Oral Tablet | | + + + + | 2022-08-06 00:00 | TRAZODONE HCL | [facility] | + + + + | 2022-10-01 00:00 | TRAZODONE HCL | [facility] | + + + + | 2020-01-15 00:00 | HYDROCODONE | [facility] | | | BIT/ACETAMINOPHEN | | + + + + | 2020-01-15 00:00 | HYDROCODONE | [facility] | | | BIT/ACETAMINOPHEN | | + + + + Problems + + + + | date | description | facility | + + + + | 2018-12-16 00:00 | Abdominal pain | [facility] | + + + + | 2018-12-16 00:00 | Abdominal pain | [facility] | + + + + | 2019-03-17 00:00 | Tonsillitis | [facility] | + + + + | 2019-03-17 00:00 | Tonsillitis | [facility] | + + + + | 2019-04-06 00:00 | Encounter for medical | [facility] | | | screening examination | | + + + + | 2019-04-06 00:00 | Encounter for medical | [facility] | | | screening examination | | + + + + | 2020-09-21 00:00 | Viral pharyngitis | [facility] | + + + + | 2020-09-21 00:00 | Viral pharyngitis | [facility] | + + + + | 2021-01-12 00:00 | Patient left without being | [facility] | | | seen | | + + + + | 2021-01-12 00:00 | Patient left without being | [facility] | | | seen | | + + + + | 2021-01-26 00:00 | Cannabinoid hyperemesis | [facility] | | | syndrome | | + + + + | 2021-01-26 00:00 | Cannabinoid hyperemesis | [facility] | | | syndrome | | + + + + | 2021-08-13 00:00 | Pharyngitis due to | [facility] | | | Streptococcus species | | + + + + | 2021-08-13 00:00 | Pharyngitis due to | [facility] | | | Streptococcus species | | + + + + | 2021-10-20 00:00 | Exudative pharyngitis | [facility] | + + + + | 2021-10-20 00:00 | Exudative pharyngitis | [facility] | + + + + | 2022-08-06 00:00 | Acute bacterial | [facility] | | | tonsillitis | | + + + + | 2022-08-06 00:00 | Acute bacterial | [facility] | | | tonsillitis | | + + + + | 2022-10-01 00:00 | Pharyngitis | [facility] | + + + + | 2022-10-01 17:36 | ACUTE PHARYNGITIS, | [facility] | | | UNSPECIFIED | | + + + + | 2022-10-01 17:36 | OTHER RETORT KILN BURNER (CURRENT) | [facility] | | | DRUG THERAPY | | + + + + | 2022-10-01 17:36 | PERSONAL HISTORY OF | [facility] | | | NICOTINE DEPENDENCE | | + + + + Procedures + + + + | date | description | facility | + + + + | 2022-11-23 00:00 | Controlling Blood | [facility] | | | Pressure; Most recent | | | | Systolic <130mm Hg | | + + + + | 2022-11-23 00:00 | Controlling BP; Most | [facility] | | | recent Diastolic BP < 80mm | | | | Hg | | + + + + | 2021-09-15 00:00 | Annual Depression | [facility] | | | Screening; [...] | 2020-08-25 00:00 | Smoker (finding) | [facility] | | | | | + + + + | 2020-09-08 00:00 | Unknown if ever smoked | [facility] | | | | | + + + + | 2020-09-08 00:00 | Smoker (finding) | [facility] | | | | | + + + + | 2021-09-16 00:00 | Unknown if ever smoked | [facility] | | | | | + + + + | 2021-09-16 00:00 | Smoker (finding) | [facility] | | | | | + + + + | 2021-10-13 00:00 | Unknown if ever smoked | [facility] | | | | | + + + + | 2021-10-13 00:00 | Smoker (finding) | [facility] | | | | | [...] | 2022-11-01 00:00 | Smoker (finding) | [facility] Danielle OJEDAC. | | | | | + + + + | 2022-12-05 00:00 | Unknown if ever smoked | [facility]. | | | | | + + + + | 2022-12-05 00:00 | Smoker (finding) | [facility] O[facility]ED[facility]. | | | | | [...]
[2023-01-24] MEDS ORDERED: AMOXICILLIN500 MG PO (20:12)
[2023-01-24 20:19] VITALS: BP 100/55
== END 2023-01-24 20:20 | disposition home or self-care (01) ==
LOC: ED 17:45
DX: J02.0 Streptococcal pharyngitis (principal); Z87.891 Personal history of nicotine dependence; Z79.899 Other long term (current) drug therapy
CPT/HCPCS: 87651

== ENCOUNTER 2024-04-20 12:38 | Emergency (ER) | payer OTHER ==
[~2024-04-20] VITALS: Ht 160 cm; Wt 84.9 kg
--- OUTSIDE RECORDS SUMMARY | ~2024-04-20 | XMS | Continuity of Care Document ---
Demographics + + + | Address | [address] [place] [address] | | | [place] [address] | + + + | Preferred Language | Unknown | + + + | Marital Status | Never | + + + | Yarsani Affiliation | Unknown | + + + | Race | White | + + + | Ethnic Group | Not or | + + + Author + + + | Author | [facility] | + + + | Organization | [facility] | + + + | Address | [address] | | | [place] [address] | + + + | Phone | | + + + Care Team Providers + + + + | Care Ice Skater Name | Role | Phone | + + + + Unavailable | Unavailable | + + + + Unavailable | Unavailable | + + + + Allergies No information. Encounters No information. Functional Status No information. Immunizations No information. Medications + + + + | date | description | facility | + + + + | 2024-03-27 00:00 | metronidazole 0.0075 MG/MG | [facility] | | | Vaginal Gel | | + + + + | 2024-03-08 00:00 | omeprazole 20 MG Delayed | [facility] | | | Release Oral Capsule | | + + + + | 2024-03-27 00:00 | metroNIDAZOLE 0.75% | [facility] | | | Vaginal Gel | | + + + + | 2024-03-08 00:00 | Omeprazole 20 MG Oral | [facility] | | | Capsule Delayed Release | | + + + + Problems No information. Procedures No information. Results/Labs +--------+--------+ +---------+--------+---------+ | test | date | facility | value | unit | notes | +--------+--------+ +---------+--------+---------+ + + | PREG TEST, URINE | + + + + + + + + + | PREG TEST, | 2024-03-27 | [facility] | POSITIVE | (missing) | (missing) | | URINE | 09:41 | Medical | | | | | | | Group | | | | + + + + + + + + + | Reported Physicians | + + + + + + + + + | Reported | 2024-03-27 | [facility] | See Note | (missing) | (missing) | | Physicians | 09:41 | Medical | | | | | | | Group | | | | + + + + + + + Social History + + + + | date | description | facility | + + + + | 2024-03-27 00:00 | Unknown if ever smoked | [facility] | + + + + | 2024-03-27 00:00 | Smoker (finding) | [facility] | + + + + Vital Signs + + + + + | date | measurement | value | units | + + + + + | 2024-03-27 00:00 | BMI | 31.5 | 1 | + + + + + | 2024-03-27 00:00 | BP_diastolic | 50 | mmHg | + + + + + | 2024-03-27 00:00 | BP_systolic | 104 | mmHg | + + + + + | 2024-03-27 00:00 | BSA | 1.9 | 1 | + + + + + | 2024-03-27 00:00 | heart_rate | 1|1| | completed | + + + + + | 2024-03-27 00:00 | heart_rate | 71 | /min | + + + + + | 2024-03-27 00:00 | height_metric | 161.29 | cm | + + + + + | 2024-03-27 00:00 | height_standard | 63.5 | in | + + + + + | 2024-03-27 00:00 | o2_saturation | 99 | % | + + + + + | 2024-03-27 00:00 | temperature_metric | 36.67 | C | | | | | | + + + + + | 2024-03-27 00:00 | | 98 | F | | | temperature_standar | | | | | d | | | + + + + + | 2024-03-27 00:00 | weight_metric | 81.82 | kg | + + + + + | 2024-03-27 00:00 | weight_standard | 180.38 | lb | + + + + +"
[~2024-04-20 12:38] MED LIST changes: +FLUCONAZOLE150 MG PO; +METRONIDAZOLE500 MG PO; +OMEPRAZOLE20 MG PO; +OMEPRAZOLE40 MG PO; +PERCOCET 5-3251 EACH PO
[2024-04-20 13:26] VITALS: BP 106/61
--- NOTE | 2024-04-20 22:21 | EKG ---
[facility] [address] [facility] [place] [address] Signed Normal sinus rhythm Normal ECG No previous ECGs available Confirmed by Yanick Manuel MD () on 04/20/2024 10:21:35 PM Electronically Signed By: YANICK MANUEL MD 04/20/242220 PATIENT NAME: NOEL GARCIA Electrocardiogram DATE OF : 89 PHYSICIAN: YANICK MANUEL MD REPORT #: [id number] REPORT IS CONFIDENTIAL AND NOT TO BE RELEASED WITHOUT AUTHORIZATION
== END 2024-04-20 13:26 | disposition home or self-care (01) ==
LOC: ED 12:38
DX: R07.89 Other chest pain (principal); Z87.891 Personal history of nicotine dependence; Z79.899 Other long term (current) drug therapy
CPT/HCPCS: 93005; 93010; 99284

== ENCOUNTER 2024-11-03 20:53 | Inpatient (IN) | payer OTHER ==
[~2024-11-03] VITALS: Ht 160 cm; Wt 108.0 kg
[2024-11-03] MEDS ORDERED: AZITHROMYCIN 500 MG in DEXTROSE 5% 250 ML IV ONE (21:45)
[2024-11-03] MEDS ORDERED: SOD+POT BICARB/CITRIC ACID 2 EA TABLET.EFF PO ONE (21:45)
[2024-11-03] MEDS ORDERED: LACTATED RINGER'S 1,000 ML IV PRN (21:45)
[2024-11-03] MEDS ORDERED: CEFAZOLIN SODIUM 3 GM/30 ML SYR IV SCH (21:47)
[2024-11-03 22:04] LABS: HEMOGLOBIN 12.3 g/dL (11.2-15.7); MCHC 33.2 g/dL (32.2-35.5); MCV 81.3 fL (79.4-94.8); RBC 4.55 M/uL (3.93-5.22)
[2024-11-03] MEDS ORDERED: PHENYLEPHRINE HCL 10 MG/ML VIAL ONE (22:25)
[2024-11-03] MEDS ORDERED: ePHEDrine sulfate 50 MG/ML AMP ONE (22:25)
[2024-11-03] MEDS ORDERED: LIDOCAINE HCL 2% 5 ML SDV ONE (22:27)
[2024-11-03] MEDS ORDERED: fentaNYL citrate 100 MCG/2 ML VIAL ONE (22:27)
[2024-11-03] MEDS ORDERED: BUPIVACAINE 0.75% IN DEXTROSE 2 ML AMP ONE (22:27)
[2024-11-03] MEDS ORDERED: dexmedeTOMIDine HCl 200 MCG/2 ML VIAL ONE (22:28)
[2024-11-03] MEDS ORDERED: OXYTOCIN 10 UNITS/ML VIAL ONE (22:30)
[2024-11-03] MEDS ORDERED: KETOROLAC TROMETHAMINE 30 MG/ML VIAL ONE (22:31)
[2024-11-03] MEDS ORDERED: ondansetron HCL 4 MG/2 ML VIAL ONE ×2 (22:31)
[2024-11-03] MEDS ORDERED: DEXAMETHASONE SOD PHOS 4 MG/ML VIAL ONE ×2 (22:31→23:46)
[2024-11-03 22:38] LABS: ABO O
[2024-11-03 22:39] LABS: ANTIBODY SCREEN NEGATIVE; RH POSITIVE
[2024-11-03 22:52] LABS: AMPHETAMINES, URINE NEGATIVE (NEGATIVE); BARBITURATES, URINE NEGATIVE (NEGATIVE); BENZODIAZEPINE, URINE NEGATIVE (NEGATIVE); BUPRENORPHINE, URINE NEGATIVE (NEGATIVE); CANNABINOID, URINE NEGATIVE (NEGATIVE); COCAINE, URINE NEGATIVE (NEGATIVE); ECSTASY, URINE POSITIVE (NEGATIVE); FENTANYL, URINE NEGATIVE (NEGATIVE); METHADONE, URINE NEGATIVE (NEGATIVE); OPIATES, URINE NEGATIVE (NEGATIVE); OXYCODONE, URINE NEGATIVE (NEGATIVE); PHENCYCLIDINE, URINE NEGATIVE (NEGATIVE)
[2024-11-03] MEDS ORDERED: Ropivacaine HCl 0.5% 30 ML VIAL ONE (23:46)
[2024-11-03] MEDS ORDERED: SODIUM CHLORIDE 0.9% 60 ML IV ONE (23:46)
[2024-11-03] MEDS ORDERED: ACETAMINOPHEN 1,000 MG/100 ML VIAL ONE (23:47)
[2024-11-03] MEDS ORDERED: GLYCOPYRROLATE 1 MG/5 ML MDV ONE (23:47)
[2024-11-04] MEDS ORDERED: OXYTOCIN/0.9 % SODIUM CHLORIDE 500 ML IV SCH (00:30)
[2024-11-04] MEDS ORDERED: PROMETHAZINE HCL 25 MG TAB PO PRN (00:30)
[2024-11-04] MEDS ORDERED: ondansetron HCL 4 MG/2 ML VIAL IV PRN ×3 (00:30→00:45)
[2024-11-04] MEDS ORDERED: OXYCODONE/APAP 5/325 TAB PO PRN (00:30)
[2024-11-04] MEDS ORDERED: bisacodyL 10 MG SUPP PR PRN (00:30)
[2024-11-04] MEDS ORDERED: METOCLOPRAMIDE HCL 10 MG/2 ML SDV IV PRN (00:30)
[2024-11-04] MEDS ORDERED: HYDROCODONE/ACETA 5/325 TAB PO PRN (00:30)
[2024-11-04] MEDS ORDERED: OXYCODONE HCL 5 MG TAB PO PRN (00:30)
[2024-11-04] MEDS ORDERED: PROMETHAZINE HCL 25 MG SUPP PR PRN (00:30)
[2024-11-04] MEDS ORDERED: PROCHLORPERAZINE EDISYLATE 10 MG/2 ML VIAL IV PRN (00:30)
[2024-11-04] MEDS ORDERED: LACTATED RINGER'S 1,000 ML IV SCH ×2 (00:32→05:00)
[2024-11-04] MEDS ORDERED: HYDROmorphone HCL 1 MG/ML SYR IV PRN (00:45)
[2024-11-04] MEDS ORDERED: NALOXONE HCL 0.4 MG SYR IV PRN ×2 (00:45)
[2024-11-04] MEDS ORDERED: IBLOOD GLUCOSE TEST STRIP 1 EA TEST VI PRN (00:45)
[2024-11-04] MEDS ORDERED: fentaNYL citrate 50 MCG/ML SDV IV PRN (00:45)
[2024-11-04] MEDS ORDERED: MORPHINE SULFATE 4 MG/ML VIAL IV PRN (00:45)
--- NOTE | 2024-11-04 01:11 | NUR ---
11/04/24 0111 Sheets,Susan 0032 PT ARRIVED TO ROOM 104, VSS AND PT AWAKE AND TALKING TO RN. FAMILY AT BEDSIDE. IV IN LEFT ARM WNL. 0100 REPORT GIVEN TO [facility] RN, ALL QUESTIONS ANSWERED AND BED PLUGGED IN. VSS.
[2024-11-04] MEDS ORDERED: KETOROLAC TROMETHAMINE 30 MG/ML VIAL IV SCH (02:00)
[2024-11-04] MEDS ORDERED: diphenhydrAMINE HCL 50 MG/ML VIAL IV PRN (02:30)
[2024-11-04 04:08] VITALS: BP 104/56
[2024-11-04 05:41] LABS: HEMATOCRIT 33.5 % (34.1-44.9); HEMOGLOBIN 11.1 g/dL (11.2-15.7); MCH 27.3 PG (25.6-32.2); MCHC 33.1 g/dL (32.2-35.5); MCV 82.3 fL (79.4-94.8); RBC 4.07 M/uL (3.93-5.22)
[2024-11-04] MEDS ORDERED: SIMETHICONE 80 MG CHEW PO SCH (07:00)
[2024-11-04] MEDS ORDERED: ENOXAPARIN SODIUM 40 MG/0.4 ML SYR SUB-Q SCH (09:00)
[2024-11-04] MEDS ORDERED: SENNOSIDES/DOCUSATE 1 EA TAB PO SCH (09:00)
--- NOTE | 2024-11-04 10:32 | PR ---
[facility] [address] [facility] [place], [place] [address] Signed PP Progress Notes Datetime Report Generated by CPN: 11/04/2024 10:32 SUBJECTIVE: [id number] Pain: Within Normal Limits Nausea/Vomiting: Denies Bowel Movement: No Vital Signs: [id number] Vital Signs: Reviewed; Within Normal Limits EXAM: Ongoing Cardiovascular: Normal Respiratory: Normal Abdomen/Uterus: Normal Lochia: Normal Vulva/Perineum: Not Done Breasts: Not Done CVA Tenderness: Normal Extremities: Normal Incision: Normal Progress: Not Applicable Exam Comments: Fundus firm U-2 nontender. Incision bandaged clean and dry IMPRESSION/PLAN/PROCEDURES: [id number] Impression: Normal Progression Plan: Continue Present Management Progress Notes: Pt seen and examined. Doing well. Has not ambulated and cavanaugh cath remains in place. Will remove shortly and encourage ambulation. Reviewed AM labs. Tolerating full diet. glucose levels normal. No concerns. Continue / postop care. Signing Physician: Caitlin Kerr DO Copies: ~ *Electronically Signed* 11/04/24 1032 CAITLIN KERR (SHAMIR) DO PATIENT NAME: NOEL GARCIA PROGRESS NOTE DATE OF : [birth year] PHYSICIAN: CAITLIN KERR (SHAMIR) DO RPT #: [id number] REPORT IS CONFIDENTIAL AND NOT TO BE RELEASED WITHOUT AUTHORIZATION
[2024-11-04] MEDS ORDERED: TRAZODONE HCL 100 MG TAB PO PRN (17:00)
[2024-11-05] MEDS ORDERED: IBUPROFEN 600 MG TAB PO SCH (02:00)
--- NOTE | 2024-11-05 12:47 | PR ---
[facility] [address] [facility] [place], [place] [address] Signed PP Progress Notes Datetime Report Generated by CPN: 11/05/2024 12:47 SUBJECTIVE: [id number] Pain: Within Normal Limits Nausea/Vomiting: Denies Flatus: Yes Bowel Movement: No Vital Signs: [id number] Vital Signs: Reviewed; Within Normal Limits EXAM: Ongoing Cardiovascular: Normal Respiratory: Normal Abdomen/Uterus: Normal Lochia: Normal Vulva/Perineum: Not Done Breasts: Not Done CVA Tenderness: Normal Extremities: Normal Incision: Normal Progress: Not Applicable Exam Comments: Incision well healing. Clean dry intact. IMPRESSION/PLAN/PROCEDURES: [id number] Impression: Normal Progression Plan: Continue Present Management Progress Notes: Pt seen and examined. Doing well. Ambulating, voiding, and tolerating full diet. Pain and lochia minimal. Has not had bowel movement and desires miralax. Incision healing nicely. No concerns. Anticipate d/c home tomorrow. Signing Physician: Caitlin Kerr DO Copies: ~ *Electronically Signed* 11/05/24 124 CAITLIN KERR (SHAMIR) DO PATIENT NAME: NOEL GARCIA PROGRESS NOTE DATE OF : [birth year] PHYSICIAN: CAITLIN KERR) DO RPT #: [id number] REPORT IS CONFIDENTIAL AND NOT TO BE RELEASED WITHOUT AUTHORIZATION
[2024-11-05] MEDS ORDERED: POLYETHYLENE GLYCOL 3350 1 PACKET PO SCH (18:00)
[2024-11-06] MEDS ORDERED: POLYETHYLENE GLYCOL 3350 1 PACKET PO ONE (08:30)
--- NOTE | 2024-11-06 08:41 | PR ---
[facility] [address] [place], [place] [address] Signed PP Progress Notes Datetime Report Generated by CPSaud: 11/06/2024 08:41 SUBJECTIVE: [id number] Pain: Within Normal Limits Nausea/Vomiting: Denies Flatus: No Bowel Movement: No Vital Signs: [id number] Vital Signs: Reviewed; Within Normal Limits EXAM: Ongoing Cardiovascular: Normal Respiratory: Normal Abdomen/Uterus: Normal Lochia: Normal Vulva/Perineum: Not Done Breasts: Not Done CVA Tenderness: Normal Extremities: Normal Incision: Normal Progress: Not Applicable Exam Comments: Fundus firm U-2 nontender. Incision well healing / clean / dry / intact. IMPRESSION/PLAN/PROCEDURES: [id number] Impression: Normal Progression Plan: Continue Present Management Progress Notes: Pt seen and examined. Doing well. Ambulating, voiding, and tolerating full diet. Pain and lochia minimal. Incision healing well. Has not had a bowel movement and we reviewed home bowel care. Bottlefeeding. Desires d/c home. No questions or concerns. Reviewed d/c instructions/meds. Reviewed care. All questions answered. S/P bilateral salpingectomy for contraception. D/C home today Signing Physician: Caitlin Kerr DO Copies: ~ *Electronically Signed* 11/06/24 0841 CAITLIN KERR (SHAMIR) DO PATIENT NAME: NOEL GARCIA PROGRESS NOTE DATE OF : 89 PHYSICIAN: CAITLIN KERR (JD) DO RPT #: [id number] REPORT IS CONFIDENTIAL AND NOT TO BE RELEASED WITHOUT AUTHORIZATION
--- NOTE | 2024-11-07 17:36 | PATH ---
[facility] [address] [place], [place] [address] Signed SPECIMEN(S): A FALLOPIAN TUBES, BILATERAL SPECIMEN SOURCE: A. FALLOPIAN TUBES, BILATERAL CLINICAL HISTORY: Salpingectomy FINAL PATHOLOGIC DIAGNOSIS: Bilateral fallopian tubes: - Two segments of benign fimbriated oviduct with incidental benign paratubal serous cyst. JVR:dmitri MICROSCOPIC EXAMINATION: Histologic sections of all submitted blocks are examined by light microscopy. These findings, together with the gross examination, support the pathologic diagnosis. GROSS DESCRIPTION: The specimen, labeled and designated "Danuta, bilateral fallopian tubes," is received in formalin and consists of two red-brown fimbriated fallopian tube segments (6.8 cm in length and ranging in diameter from 0.9 to 1.7 cm, and 9.5 cm in length and ranging in diameter from 0.4 to 0.9 cm). Both segments contain paratubal cysts (0.8-1.3 cm in greatest dimension). One of the segments is arbitrarily inked blue. Both segments are serially sectioned to reveal red-brown soft cut surfaces. The paratubal cysts are sectioned to reveal a clear viscous material. Six Color Press Operator sections including fimbriae entirely are submitted in cassette (A1-A2). VB (under the direct supervision of a pathologist) The Gross Description was prepared using a voice recognition system. The report was reviewed for accuracy; however, sound-alike word errors, addition and/or deletions may occur. If there is any question about this report, please contact Client Services. PERFORMING LABORATORY: Technical component was performed by [facility], [address] [place] [id number] (CLIA# [id number]). Professional interpretation was performed by [facility] - [facility], [address] [place] [id number] (CLIA#: [id number]). PATIENT NAME: NOEL GARCIA PATHOLOGY DATE OF : [birth year] REPORT #: [id number] PHYSICIAN: JULIANE PATHOLOGY PCP: HEMALATHA SIERRA PA-C REPORT IS CONFIDENTIAL AND NOT TO BE RELEASED WITHOUT AUTHORIZATION [address] [place] [address] Signed Diagnostician: Umesh Aquino MD Pathologist Electronically Signed 11/07/2024 Copies: ~ PATIENT NAME: NOEL GARCIA PATHOLOGY DATE OF : [birth year] REPORT #: [id number] PHYSICIAN: JULIANE PATHOLOGY PCP: HEMALATHA SIERRA PA-C REPORT IS CONFIDENTIAL AND NOT TO BE RELEASED WITHOUT AUTHORIZATION
== END 2024-11-06 12:58 | disposition home or self-care (01) | DRG 785 ==
LOC: FBCO 20:53 → FBC 21:48
PROVIDERS: ADMIT Obstetrics & Gynecology; ATTEND Obstetrics & Gynecology
PROC: 10D00Z1 Extraction of Products of Conception, Low, Open Approach (ICD-10-PCS; principal; 2024-11-03 22:39)
PROC: 0UT70ZZ Resection of Bilateral Fallopian Tubes, Open Approach (ICD-10-PCS; 2024-11-03 22:39)
DX: O34.211 Maternal care for low transverse scar from previous cesarean delivery (principal); O77.0 Labor and delivery complicated by meconium in amniotic fluid; O99.344 Other mental disorders complicating childbirth; O99.214 Obesity complicating childbirth; F41.9 Anxiety disorder, unspecified; F32.A Depression, unspecified; E78.5 Hyperlipidemia, unspecified; O99.284 Endocrine, nutritional and metabolic diseases complicating childbirth; O14.14 Severe pre-eclampsia complicating childbirth; Z3A.38 38 weeks gestation of pregnancy; Z87.442 Personal history of urinary calculi; Z37.0 Single live birth; Z30.2 Encounter for sterilization; Z87.891 Personal history of nicotine dependence; Z79.4 Long term (current) use of insulin; Z79.82 Long term (current) use of aspirin; Z79.899 Other long term (current) drug therapy
CPT/HCPCS: 36415; 80307; 85027; 86850; 86900; 86901; A9270; J0131; J0456; J0690; J1100; J1200; J1650; J1885; J2003; J2270; J2371; J2405; J2590; J2795; J3010; J7060; J7121